=== PATIENT | female | born 1950 | race Caucasian/White ===

== ENCOUNTER → 2018-05-24 | Outpatient (CLI) | payer OTHER, MEDICARE | LOC: FCPNEURO 20:00 | PROVIDERS: ATTEND Psychiatry & Neurology Sleep Medicine | DX: G47.33 Obstructive sleep apnea (adult) (pediatric) (principal) ==

== ENCOUNTER → 2018-09-03 | Outpatient (CLI) | payer OTHER, MEDICARE | LOC: BHFA 10:00 | PROVIDERS: ATTEND Internal Medicine Cardiovascular Disease | DX: R00.0 Tachycardia, unspecified (principal); I10 Essential (primary) hypertension; I34.1 Nonrheumatic mitral (valve) prolapse ==

== ENCOUNTER → 2018-09-16 | Outpatient (CLI) | payer OTHER, MEDICARE | DX: R94.39 Abnormal result of other cardiovascular function study (principal) | CPT/HCPCS: 78452; 93017; A9500 ==

== ENCOUNTER → 2018-09-20 | Outpatient (CLI) | payer OTHER, MEDICARE | LOC: CIMAGING 14:08 | PROVIDERS: ATTEND Internal Medicine Cardiovascular Disease | DX: J98.11 Atelectasis (principal); R91.1 Solitary pulmonary nodule; Z90.49 Acquired absence of other specified parts of digestive tract | CPT/HCPCS: 71250-PO ==

== ENCOUNTER 2018-10-03 06:44 | Observation (INO) | payer OTHER, MEDICARE ==
--- NOTE | 2018-10-03 05:42 | POSTANESTH ---
Post Anesthetic Evaluation Cardiovascular Status: Normal, Stable Respiratory Status: Normal, Stable Level of Consciousness/Mental Status: Can Participate in Eval, Alert and Oriented Pain Control: Adequate, Prn Tx Ordered Nausea/Vomiting Control: Adequate, Prn Tx Ordered Complications Possibly Related to Anesthesia: None Noted
--- NOTE | 2018-10-03 05:43 | PDANEPAE ---
ANE History of Present Illness 68 yo female for EP study. ANE Past Medical History - Cardiovascular History Hx Hypertension: Yes Cardiovascular History Comment: hypercholesterolemia - Pulmonary History Hx COPD: No Hx Asthma/Reactive Airway Disease: No Hx Recent Upper Respiratory Infection: No Hx Oxygen in Use at Home: No Hx Sleep Apnea: Yes Pulmonary History Comment: environmental allergies flaring now, has a dry cough/ throat clearing - Endocrine History Hx Diabetes: Yes Hypothyroid: No Hyperthyroid: No Obesity: moderate - Neurological & Psychiatric Hx Hx Neurological and Psychiatric Disorders: Yes Neurological / Psychiatric History Comment: restless leg syndrome ANE Review of Systems Review of Systems: - Systems EENMT: Reports: other (throat clearing/dry cough secondary to allergies) ANE Patient History - Allergies Allergies/Adverse Reactions: Penicillins Allergy (Verified 10/02/18 14:47) Other-Enter Comments - Home Medications Home Medications: Aspirin [Aspirin 81mg (*)] 81 mg PO DAILY 10/02/18 [Last Taken Unknown] Atorvastatin Calcium [Lipitor 20 mg (*)] 20 mg PO HS 10/02/18 [Last Taken Unknown] Cetirizine [ZyrTEC 10 mg (*)] 10 mg PO DAILY 10/02/18 [Last Taken Unknown] Cholecalciferol Vit D3 [Vitamin D3 (*)] 1,000 units PO DAILY 10/02/18 [Last Taken Unknown] Fluticasone Nasal [Flonase Nasal [place] (RX)] 1 sprays NASAL DAILY PRN 10/02/18 [ Last Taken Unknown] Gabapentin [Neurontin 300 MG (*)] 300 mg PO HS 10/02/18 [Last Taken Unknown] Herbals/Supplements -Info Only 1 ea PO DAILY 10/02/18 [Last Taken Unknown] Hydrochlorothiazide [HCTZ (*)] 12.5 mg PO DAILY 10/02/18 [Last Taken Unknown] Metoprolol Tartrate [Lopressor 50 mg (*)] 50 mg PO BID 10/02/18 [Last Taken Unknown] Multivitamins [Multivitamin (*)] 1 each PO DAILY 10/02/18 [Last Taken Unknown] Spironolactone [Aldactone 25 MG (*)] 25 mg PO DAILY 10/02/18 [Last Taken Unknown ] metFORMIN SR [Glucophage XR 500 mg (*)] 1,000 mg PO DAILY@1800 10/02/18 [Last Taken Unknown] - NPO status NPO Status: no food or drink >8 hours - Anes Hx Anes Hx: no prior problems - Family Anes Hx Family Anes Hx: neg - N/A ANE Labs/Vital Signs - Labs Result Diagrams: 10/03/18 07:00 10/03/18 07:00 - Vital Signs Vital Signs: reviewed preoperatively; see RN documention for details Height: 168 cm Weight: 103 kg ANE Physical Exam - Airway Neck exam: FROM Mallampati Score: Class 2 Mouth exam: normal dental/mouth exam - Pulmonary Pulmonary: clear to auscultation - Cardiovascular Cardiovascular: regular rate and rhythym - ASA Status ASA Status: III ANE Anesthesia Plan Anesthesia Plan: general endotracheal anesthesia Total IV Anesthesia: Yes
[2018-10-03] MEDS ORDERED: NS 1,000 ML IV ONE (06:48)
[2018-10-03 07:22] LABS: PLATELET COUNT 263 10^3/uL (150-400)
--- NOTE | 2018-10-03 07:32 | PDGENHP ---
History & Physical Chief Complaint: atrial tachycardia History of Present Illness: sustained atrial tachycardia on ambulatory monitoring Relevant Physical Exam: A+Ox4, RR/NR, no MRG, CTAB, no focal deficits Cardiorespiratory Assessment: sustained atrial tachycardia -> EPS+ablation
[2018-10-03 07:37] LABS: INR 1.07 (0.83-1.16); PROTIME(PATIENT) 13.5 SEC (12.0-15.0)
[2018-10-03] MEDS ORDERED: BUPIVACAINE 0.5% 30 ML SDV ONE (08:25)
[2018-10-03] MEDS ORDERED: ISOPROTERENOL HCL/D5W 0.2 MG/50 ML BAG IV ONE (08:25)
[2018-10-03] MEDS ORDERED: LIDOCAINE 1% 300 MG/30 ML SDV ONE (08:25)
[2018-10-03] MEDS ORDERED: HEPARIN 10,000 UNIT/10 ML MDV (1,000 UNIT/ML) ONE ×2 (08:25→09:25)
[2018-10-03] MEDS ORDERED: PROPOFOL/EMULSION 500 MG/50 ML BOTTLE IV ONE ×5 (09:01→11:08)
[2018-10-03] MEDS ORDERED: DEXAMETHASONE 4 MG/ML VIAL ONE (09:01)
[2018-10-03] MEDS ORDERED: ROCURONIUM 100 MG/10 ML VIAL ONE (09:04)
[2018-10-03] MEDS ORDERED: HEPARIN/DEXTROSE 25,000 UNIT/500 ML BAG ONE (09:25)
[2018-10-03] MEDS ORDERED: NEOSTIGMINE METHYLSULFATE 10 MG/10 ML MDV ONE (11:44)
[2018-10-03] MEDS ORDERED: PROTAMINE SULFATE 50 MG/5 ML VIAL IVP ONE (11:46)
[2018-10-03] MEDS ORDERED: ALBUTEROL 3 ML DEYVIAL IH PRN (11:46)
[2018-10-03] MEDS ORDERED: LR 500 ML IV PRN (11:46)
[2018-10-03] MEDS ORDERED: ONDANSETRON 4 MG/2 ML VIAL IVP PRN (11:46)
[2018-10-03] MEDS ORDERED: NALOXONE HCL 0.4 MG/ML INJ IVP PRN (11:46)
[2018-10-03] MEDS ORDERED: fentaNYL 100 MCG/2 ML INJ IVP PRN (11:46)
[2018-10-03] MEDS ORDERED: ACETAMINOPHEN 500 MG TAB PO PRN (11:46)
[2018-10-03] MEDS ORDERED: ACETAMINOPHEN 325 MG TAB PO PRN (12:08)
[2018-10-03] MEDS ORDERED: HYDROCODONE/APAP 5/325 TAB PO PRN (12:08)
[2018-10-03] MEDS ORDERED: FLUTICASONE NASAL 120 SPRAYS/16 GM MDI EACHNARE PRN (12:09)
--- NOTE | 2018-10-03 12:42 | EPPROC ---
Electrophysiology Procedure Note: Date: 10/03/2018 Handyperson: Thierry Carias MD Procedures performed: Comprehensive EP study and catheter ablation of SVT -67559 Add on ablation of 2nd SVT mechanism -10069 Coronary sinus catheter placement/pacing -86130 3D electro anatomic mapping -53626 Attempted induction of arrhythmia following drug infusion -73159 Indications: 68-year-old female with recurrent SVT, suspicious for atrial tachycardia based on ambulatory monitoring. Techniques: Following informed consent, the patient was brought to the EP lab in a fasting nonsedated state, in sinus rhythm. IV sedation was provided by the anesthesiology service. Bilateral groins were prepped and draped in usual sterile fashion. 1% lidocaine was infiltrated at the right groin, and vascular access was obtained under ultrasound guidance, x4 in the right femoral vein, with placement of one 8 [place] sheath and three 5 [place] sheaths. Under fluoroscopic guidance, it decapolar catheter was placed in the CS; quads at HRA , his, RVA. Weight based heparin bolus and drip were administered, targeting ACT 300 sec. Baseline rhythm was sinus, with no manifest ventricular pre-excitation. Notably , the his potential showed a split morphology. PP 616ms CO 147ms QRS 85ms QT 349ms AH 69ms HV 55ms Antegrade conduction showed block within the AV node at 310 milliseconds Retrograde conduction was concentric and decremental, with no evidence of extranodal accessory conduction VA BCL 320ms SVT #1 was repeatedly observed spontaneously, and with atrial burst pacing + programmed stimulation- this was an atrial tachycardia with right atrial origin based on HRA/his relatively simultaneous activation; TCL 470ms. AT1 repeatedly evolved to atrial fibrillation during the course of the study. It also evolved to SVT #2 repeatedly. SVT #2 showed 1:1 AV relationship, TCL 310ms, concentric RAAS, septal VA time 16ms. 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 One of the 5 [place] sheaths was exchanged over wire for an SL 0 long sheath. One of the quad catheters was removed. Atrial tachycardia activation mapping was performed using a combination of a PentaRay multipolar catheter, and a Smart Touch SF ablation catheter. Discontinuous activation time mapping of the atrial tachycardia was performed, due to intermittent termination of the arrhythmia as well as intermittent conversion to atrial fibrillation as well as AVNRT. Due to recurrent AVNRT induction with the atrial tachycardia, the decision was made to 1st ablate the slow pathway to eliminate this SVT. A CARTO map was created of the right atrium and proximal CS; the his position was annotated. The slow pathway region was localized using anatomic landmarks and confirmed using local potentials. RF ablation was performed at 30 w power in this location. During RFA, junctional automaticity was observed intermittently, with consistent antegrade and retrograde conduction. Following slow pathway ablation, the atrial tachycardia was able to be mapped more fully. The area of interest localized to the superior aspect of the fossa ovalis, on the right atrial side of the septum. In this location, pre P potentials were noted with extensive fractionation. RF ablation was performed in this region at 35w power, during atrial tachycardia; with RF ablation, there was near immediate termination of atrial tachycardia. Consolidation lesions were applied near the successful ablation site. Following RF ablation of both the atrial tachycardia and the slow pathway, repeat induction testing was performed in the baseline state and with isoproterenol infusion. On isoproterenol infusion up to 4 micrograms/minute, there was no longer evidence of slow pathway conduction, and neither SVT was inducible. AVN ERP 450/300/250ms (directly off fast pathway) AERP <450/300/210ms At the completion of the procedure, all catheters were removed. A temporary hemostasis suture was applied at the right groin access site, and sheaths were removed; manual pressure was held until hemostasis. The patient tolerated the procedure well. EBL: Minimal Complications: None Assessment: Atrial tachycardia arising from right atrial aspect of the fossa ovalis, successfully ablated Typical AV magali reentry tachycardia, successfully ablated with complete elimination of the slow pathway Split his potential, with no evidence of pathologic intra his AV block Plan: Bedrest 6 hr postprocedure Aspirin 81 mg daily for 1 month postprocedure Groin precautions for 10 days post procedure Avoid sodium channel blocking agents due to evidence of split his morphology
[2018-10-03] MEDS ORDERED: metFORMIN SR 500 MG TAB PO SCH (18:00)
[2018-10-03] MEDS: METOPROLOL TARTRATE 50 MG TAB PO SCH (19:22)
[2018-10-03] MEDS ORDERED: ATORVASTATIN CALCIUM 20 MG TAB PO SCH (21:00)
[2018-10-03] MEDS ORDERED: GABAPENTIN 300 MG CAP PO SCH (21:00)
[2018-10-04 04:31] LABS: PLATELET COUNT 263 10^3/uL (150-400)
[2018-10-04 04:38] LABS: CREATINE KINASE 94 IU/L (0-156)
[2018-10-04 07:17] VITALS: BP 121/76
[2018-10-04] MEDS: METOPROLOL TARTRATE 50 MG TAB PO SCH (08:13)
[2018-10-04] MEDS ORDERED: CETIRIZINE 10 MG TAB PO SCH (09:00)
[2018-10-04] MEDS ORDERED: SPIRONOLACTONE 25 MG TAB PO SCH (09:00)
[2018-10-04] MEDS ORDERED: HYDROCHLOROTHIAZIDE 25 MG TAB PO SCH (09:00)
[2018-10-04] MEDS ORDERED: ASPIRIN 81 MG CHEWABLE TAB PO SCH (09:00)
--- NOTE | 2018-10-04 10:00 | ASMTLACE ---
LACE Length of stay for Answers: Less than 1 day current admission Acuity / Level of Answers: No Care: Did the patient have an inpatient admission? Comorbidities - select Answers: Other Notes: s/p EP all that apply Score: 1 Date Signed: 10/04/2018 09:59 AM Electronically Signed By:Stacie Soliman RN
--- NOTE | 2018-10-04 10:02 | ASMTDCNOTE ---
Case Management Discharge Discharge Order Complete? Answers: Yes Patient to Obtain Answers: Independently Medications Transportation Arranged Answers: Family/Friends Discharge Comments Notes: Medically cleared for independent discharge Date Signed: 10/04/2018 10:01 AM Electronically Signed By:Stacie Soliman RN
--- NOTE | 2018-10-04 14:00 | GDS ---
[f rep st] DISCHARGE SUMMARY DISCHARGE DIAGNOSES: 1. Supraventricular tachycardia status post ablation of atrial tachycardia and atrioventricular magali reentry tachycardia. 2. Hypertension. 3. Right elevated hemidiaphragm. 4. Mitral valve prolapse. 5. Obstructive sleep apnea. 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 Markham. She underwent monitoring, which demonstrated repeated runs of sustained atrial tachycardia with symptoms of palpitations despite taking metoprolol 100 mg per day. HOSPITAL COURSE: Dr. Carias performed ablation of atrial tachycardia that was arising from the right atrial aspect of the fossa ovalis. An ablation of AVNRT with ablation of the slow pathway was also performed. That evening she had heart rates ranging from 120 to 140 beats per minute. These resolved after she took her evening dose of metoprolol. No tachycardia since then. She denies any chest pain, pressure or tightness. Overnight. She denies any significant pain at her groin site. There was no bleeding at her groin site. LAB WORK: WBC is 14.36, hemoglobin is 13.7, hematocrit 41.4, platelets 263, sodium is 139, potassium 4.2, chloride 108, bicarb 21, BUN 16, creatinine 0.7, glucose is 124, troponin is 0.484, which is elevated and to be expected post ablation. PHYSICAL EXAMINATION: VITAL SIGNS: Blood pressure is 121/76, pulse 75, respirations 16, temperature 37. GENERAL: She is alert and oriented, sitting up in chair in no acute distress. LUNGS: Clear to auscultation. CARDIAC: Regular rate and rhythm without murmur, rub or gallop. ABDOMEN: Soft and nontender. SKIN: Groin is without hematoma. There is mild bruising. EXTREMITIES: Are warm, no discoloration. Bilateral +2 pedal pulses. Suture was removed without difficulty from the right groin site. DISCHARGE MEDICATIONS: Please see discharge medication reconciliation. DISCHARGE INSTRUCTIONS: She was given written and verbal groin restriction instructions. She will not lift over 10 pounds for 10 days. No vigorous activity for 10 days. She will take 81 mg of aspirin for at least 6 weeks post ablation. Of note, she is to avoid sodium channel blocking agents due to evidence of Split His morphology on EP study. FOLLOWUP: She has a followup with Dr. Carias on November 05 at 1:45 at [facility]. ADDENDUM Thierry Carias MD-patient seen and discussed with Ms Preston. Doing well status post ablation of atrial tachycardia as well as typical AVNRT. Postop care and follow-up as outlined above. /[id number]/MODL MTDD
--- NOTE | 2018-10-07 13:58 | CPEKG ---
Test Reason : OPEN Blood Pressure : / mmHG Vent. Rate : 087 BPM Atrial Rate : 087 BPM P-R Int : 202 ms QRS Dur : 087 ms QT Int : 378 ms P-R-T Axes : 056 052 040 degrees QTc Int : 455 ms Sinus rhythm Confirmed by Michael Huang ([id number]) on 10/07/2018 1:58:01 PM Referred By: Abdiel Carias Confirmed By:Michael Huang
--- NOTE | 2018-10-07 13:59 | CPEKG ---
Test Reason : OPEN Blood Pressure : / mmHG Vent. Rate : 082 BPM Atrial Rate : 082 BPM P-R Int : 162 ms QRS Dur : 085 ms QT Int : 372 ms P-R-T Axes : 012 027 009 degrees QTc Int : 435 ms Sinus rhythm Abnormal R-wave progression, early transition Confirmed by Michael Huang ([id number]) on 10/07/2018 1:59:41 PM Referred By: Abdiel Carias Confirmed By:Michael Huang
--- NOTE | 2018-10-07 15:28 | CPEKG ---
Test Reason : OPEN Blood Pressure : / mmHG Vent. Rate : 088 BPM Atrial Rate : 088 BPM P-R Int : 158 ms QRS Dur : 081 ms QT Int : 349 ms P-R-T Axes : -14 040 030 degrees QTc Int : 423 ms Sinus rhythm Confirmed by Michael Huang ([id number]) on 10/07/2018 3:28:09 PM Referred By: Abdiel Carias Confirmed By:Michael Huang
== END 2018-10-04 10:59 | disposition home or self-care (01) ==
LOC: FCATH 06:44 → F2W 11:48
PROVIDERS: ADMIT Internal Medicine Cardiovascular Disease; ATTEND Internal Medicine Cardiovascular Disease
DX: I47.1 Supraventricular tachycardia (principal); I10 Essential (primary) hypertension; I34.0 Nonrheumatic mitral (valve) insufficiency; G47.33 Obstructive sleep apnea (adult) (pediatric)
CPT/HCPCS: 93005; 93613; 93621; 93623; 93653; 93655; C1730; C1732; C1893; J1100; J1644; J2704; J2720

== ENCOUNTER → 2018-10-25 | Outpatient (CLI) | payer OTHER, MEDICARE | LOC: FIMAGING 10:55 ==